=== PATIENT | male | born 1945 | race Caucasian/White ===

== ENCOUNTER 2017-12-20 21:37 | Emergency (ER) | payer OTHER, MEDICARE ==
[2017-12-20 22:37] LABS: BASO % 0.7 % (0.0-1.0); EOS # 0.1 10^3/uL (0.0-0.50); EOS % 2.6 % (0.0-3.0); HEMATOCRIT 35.8 % (42.0-52.0); HEMOGLOBIN 11.8 g/dl (14.0-18.0); IMMATURE GRANULOCYTE % 0.4 % (0-3.0); LYMPH # 0.7 10^3/uL (1.5-4.5); LYMPH % 15.4 % (24.0-44.0); MEAN CORPUSCULAR HEMOGLOBIN 28.6 pg (27.0-33.0); MEAN CORPUSCULAR VOLUME 86.9 fl (80.0-96.0); MONO # 0.6 10^3/uL (0.0-0.8); MONO % 12.7 % (0.0-5.0); NEUTROPHILS # 3.1 10^3/uL (1.8-7.7); NEUTROPHILS % 68.2 % (36.0-66.0); PLATELET COUNT, AUTOMATED 143 10^3/uL (150-450); RED BLOOD COUNT 4.12 10^6/uL (4.30-6.10); RED CELL DISTRIBUTION WIDTH 15.9 % (11.5-14.5); WHITE BLOOD COUNT 4.6 10^3/uL (4.0-10.0)
[2017-12-20 22:41] LABS: INR 0.98; PROTHROMBIN TIME 13.1 SECONDS (12.4-14.5)
[2017-12-20 22:42] LABS: PARTIAL THROMBOPLASTIN TIME 26.5 SECONDS (26.8-37.9)
[2017-12-20] MEDS: NITROGLYCERIN 0.4 MG SUBL TABLET SL (22:42)
[2017-12-20] MEDS: ASPIRIN 81 MG CHEW TABLET PO (22:42)
[2017-12-20 23:00] LABS: ALBUMIN 3.6 GM/DL (3.2-5.2); ALKALINE PHOSPHATASE 68 U/L (45-117); ALT/SGPT 41 U/L (12-78); ANION GAP 10 MEQ/L (8-16); AST/SGOT 30 U/L (7-37); BILIRUBIN,DIRECT < 0.1 MG/DL (0.0-0.2); BILIRUBIN,TOTAL 0.3 MG/DL (0.2-1.0); BLOOD UREA NITROGEN 14 MG/DL (7-18); CALCIUM LEVEL 8.6 MG/DL (8.8-10.2); CARBON DIOXIDE LEVEL 23 MEQ/L (21-32); CHLORIDE LEVEL 102 MEQ/L (98-107); CK-MB VALUE MASS 3.1 NG/ML (0.0-3.6); CPK CREATINE PHOSPHOKINASE 92 U/L (39-308); CREATININE FOR GFR 1.49 MG/DL (0.70-1.30); GLOMERULAR FILTRATION RATE 49.5 (>42); GLUCOSE, FASTING 168 MG/DL (70-100); LIPASE 167 U/L (73-393); MB/CK RELATIVE INDEX 3.36 (< OR =4); POTASSIUM SERUM 3.9 MEQ/L (3.5-5.1); SODIUM LEVEL 135 MEQ/L (136-145); TOTAL PROTEIN 7.2 GM/DL (6.4-8.2); TROPONIN I < 0.02 NG/ML (< 0.10)
[2017-12-20] MEDS ORDERED: ISOVUE-370 76% 100ML VIAL (Q9967) As Ordered (23:18)
[2017-12-21 04:07] LABS: CPK CREATINE PHOSPHOKINASE 90 U/L (39-308); MB/CK RELATIVE INDEX 3.33 (< OR =4); TROPONIN I < 0.02 NG/ML (< 0.10)
== END 2017-12-21 04:56 | disposition home or self-care (01) ==
LOC: M ED 21:37
DX: R07.89 Other chest pain (principal); R06.02 Shortness of breath; R05 Cough; J44.9 Chronic obstructive pulmonary disease, unspecified; E78.5 Hyperlipidemia, unspecified; M19.90 Unspecified osteoarthritis, unspecified site; Z95.5 Presence of coronary angioplasty implant and graft; Z79.899 Other long term (current) drug therapy; Z79.82 Long term (current) use of aspirin; Z88.0 Allergy status to penicillin; F17.210 Nicotine dependence, cigarettes, uncomplicated
CPT/HCPCS: Q9967

== ENCOUNTER → 2019-04-02 | Outpatient (CLI) | payer OTHER ==
[~2019-04-02] MED LIST: ASPI81TA26 PO; BUPR150T3 PO; CYCL10TA PO; FISH100049 PO; FLOM0.4C39 PO; OMEP20CA3 PO; PARO40TA3 PO; SIMV40TA2 PO; TYLE500T78 PO
--- NOTE | 2019-04-02 12:05 | REP ---
Duplex extremity venous ultrasound: Left lower extremity. History: Possible DVT. Left leg swelling. Findings: The deep veins are anechoic and fully compressible from the groin to the popliteal fossa in the left lower extremity. Color flow imaging is homogeneous. Spectral Doppler interrogation demonstrates intact respiratory variation in flow and normal manual augmentation of flow. There is no evidence of deep vein thrombosis. There is a Clement's cyst in the left popliteal fossa measuring 8.7 x 1.7 x 3.7 cm. Impression: 8.7 cm Clement's cyst, otherwise negative left lower extremity duplex venous ultrasound. No evidence of deep vein thrombosis. Electronically Signed by Chapin Bassett MD 04/02/2019 11:56 A
== END ==
LOC: M RAD 11:22
PROVIDERS: ATTEND Physician Assistant Medical
DX: M71.22 Synovial cyst of popliteal space [Baker], left knee (principal)

== ENCOUNTER → 2022-07-06 | Outpatient (CLI) | payer OTHER ==
[~2022-07-06] MED LIST changes: +BUPR150T12 PO; -BUPR150T3 PO; +CYCL-707 PO; -CYCL10TA PO; +OMEP1CAP73 PO; -OMEP20CA3 PO; -SIMV40TA2 PO; +SIMV40TA20 PO
== END ==
LOC: M RAD 10:35
PROVIDERS: ATTEND Physician Assistant Medical
DX: Z12.2 Encounter for screening for malignant neoplasm of respiratory organs (principal); Z87.891 Personal history of nicotine dependence; R91.8 Other nonspecific abnormal finding of lung field; I70.0 Atherosclerosis of aorta; I25.10 Atherosclerotic heart disease of native coronary artery without angina pectoris

== ENCOUNTER → 2023-07-11 | Outpatient (CLI) | payer MEDICARE, OTHER | LOC: M PLALAB 13:15 | PROVIDERS: ATTEND Nurse Practitioner Family | DX: R82.90 Unspecified abnormal findings in urine (principal); B95.61 Methicillin susceptible Staphylococcus aureus infection as the cause of diseases classified elsewhere ==

== ENCOUNTER → 2023-11-07 | Outpatient (CLI) | payer MEDICARE, OTHER | LOC: M PLALAB 09:10 | PROVIDERS: ATTEND Nurse Practitioner Family | DX: C61 Malignant neoplasm of prostate (principal) ==

== ENCOUNTER → 2023-11-24 | Outpatient (CLI) | payer MEDICARE, OTHER | LOC: M ONCR 13:10 | PROVIDERS: ATTEND General Practice | DX: C61 Malignant neoplasm of prostate (principal); C77.5 Secondary and unspecified malignant neoplasm of intrapelvic lymph nodes; F17.210 Nicotine dependence, cigarettes, uncomplicated; R35.1 Nocturia; Z71.2 Person consulting for explanation of examination or test findings; Z79.818 Long term (current) use of other agents affecting estrogen receptors and estrogen levels; Z79.82 Long term (current) use of aspirin; Z79.899 Other long term (current) drug therapy; Z88.0 Allergy status to penicillin; Z88.1 Allergy status to other antibiotic agents; Z92.3 Personal history of irradiation ==

== ENCOUNTER 2023-11-29 13:25 | Outpatient (RCR) | payer OTHER | END 2023-12-06 | LOC: M ONCR 13:25 | PROVIDERS: ATTEND General Practice | DX: Z51.0 Encounter for antineoplastic radiation therapy (principal); C61 Malignant neoplasm of prostate ==

== ENCOUNTER → 2023-12-26 | Outpatient (CLI) | payer OTHER | LOC: M RAD 09:17 | PROVIDERS: ATTEND Nurse Practitioner Family | DX: I71.40 Abdominal aortic aneurysm, without rupture, unspecified (principal); I72.3 Aneurysm of iliac artery; Z95.828 Presence of other vascular implants and grafts ==

== ENCOUNTER → 2024-01-04 | Outpatient (RCR) | payer OTHER | LOC: M ONCR 12-11 13:47 | PROVIDERS: ATTEND General Practice | DX: Z51.0 Encounter for antineoplastic radiation therapy (principal); C61 Malignant neoplasm of prostate ==

== ENCOUNTER 2024-01-19 13:42 | Outpatient (RCR) | payer OTHER ==
[~2024-01-19 13:42] MED LIST changes: +DEXA2TA PO
== END 2024-02-04 ==
LOC: M ONCR 13:42
PROVIDERS: ATTEND General Practice
DX: Z51.0 Encounter for antineoplastic radiation therapy (principal); C61 Malignant neoplasm of prostate

== ENCOUNTER → 2024-03-01 | Outpatient (REF) | payer OTHER | LOC: M LABDRAWP 14:59 | PROVIDERS: ATTEND Nurse Practitioner Family | DX: C61 Malignant neoplasm of prostate (principal) ==

== ENCOUNTER → 2024-04-16 | Outpatient (CLI) | payer OTHER | LOC: M PLALAB 14:28 | PROVIDERS: ATTEND General Practice | DX: C61 Malignant neoplasm of prostate (principal) ==

== ENCOUNTER → 2024-04-23 | Outpatient (CLI) | payer OTHER ==
[~2024-04-23] MED LIST changes: +MYRB50TA PO
== END ==
LOC: M ONCR 14:27
PROVIDERS: ATTEND General Practice
DX: C61 Malignant neoplasm of prostate (principal); R35.1 Nocturia; R35.0 Frequency of micturition; Z71.2 Person consulting for explanation of examination or test findings; F17.210 Nicotine dependence, cigarettes, uncomplicated; Z79.818 Long term (current) use of other agents affecting estrogen receptors and estrogen levels; Z92.3 Personal history of irradiation; Z88.0 Allergy status to penicillin; Z88.1 Allergy status to other antibiotic agents; Z79.82 Long term (current) use of aspirin; Z79.899 Other long term (current) drug therapy

== ENCOUNTER 2024-09-19 13:25 | Day surgery (SDC) | payer OTHER ==
[~2024-09-19] VITALS: Ht 188 cm; Wt 108.9 kg
[~2024-09-19 13:25] MED LIST changes: +ACET650T61 PO; +AMIL5TAB4 PO; +IRON65TA2 PO; +JARD1TAB3 PO; +LIDOCAINE 2% 100MG/5ML SDV (FOR ANES.) As Ordered ONE; +META0.52 PO; +NS 250 ML IV ONE; +OXYB-54 PO; +TERA10CA3 PO; +VENTAER INH; +VESI10TA2 PO; +fentaNYL 100 MCG/2 ML INJECTION As Ordered ONE; +propofoL 200 MG/20 ML VIAL As Ordered ONE
[2024-09-19 15:05] VITALS: BP 175/83; O2SAT 94
== END 2024-09-19 15:15 | disposition home or self-care (01) ==
LOC: M OPP 13:25
PROVIDERS: ATTEND Surgery
DX: D50.9 Iron deficiency anemia, unspecified (principal); K29.71 Gastritis, unspecified, with bleeding; D12.5 Benign neoplasm of sigmoid colon; D12.4 Benign neoplasm of descending colon; K21.9 Gastro-esophageal reflux disease without esophagitis; Z85.46 Personal history of malignant neoplasm of prostate; E11.9 Type 2 diabetes mellitus without complications; I10 Essential (primary) hypertension; J44.9 Chronic obstructive pulmonary disease, unspecified; R32 Unspecified urinary incontinence; E78.00 Pure hypercholesterolemia, unspecified; I25.2 Old myocardial infarction; Z95.5 Presence of coronary angioplasty implant and graft; F17.210 Nicotine dependence, cigarettes, uncomplicated; Z79.899 Other long term (current) drug therapy; Z79.82 Long term (current) use of aspirin; Z88.0 Allergy status to penicillin; Z88.1 Allergy status to other antibiotic agents; G47.30 Sleep apnea, unspecified; Z92.3 Personal history of irradiation
CPT/HCPCS: 43239; 45385; 88305; J3010

== ENCOUNTER 2024-10-18 11:19 | Inpatient (IN) | payer OTHER ==
[~2024-10-18 11:19] MED LIST changes: -LIDOCAINE 2% 100MG/5ML SDV (FOR ANES.) As Ordered ONE; -NS 250 ML IV ONE; -fentaNYL 100 MCG/2 ML INJECTION As Ordered ONE; -propofoL 200 MG/20 ML VIAL As Ordered ONE
[2024-10-18 12:02] LABS: VENOUS O2 SATURATION 82.7 % (60.0-80.0); VENOUS PARTIAL PRESSURE CO2 33.2 mmHg (38.0-50.0); VENOUS PARTIAL PRESSURE O2 47.2 mmHg (30.0-50.0); VENOUS PH 7.398 UNITS (7.330-7.430); VENOUS STANDARD HCO3 20.9 MMOL/L
[2024-10-18 12:07] LABS: BASO % 0.1 % (0.0-1.0); EOS # 0.1 10^3/uL (0.0-0.5); EOS % 0.4 % (0.0-3.0); HEMATOCRIT 36.1 % (42.0-52.0); HEMOGLOBIN 11.3 g/dl (13.5-17.5); LYMPH # 0.8 10^3/uL (1.5-5.0); LYMPH % 5.3 % (24.0-44.0); MEAN CORPUSCULAR HEMOGLOBIN 24.6 pg (27.0-33.0); MEAN CORPUSCULAR HGB CONC 31.3 g/dl (32.0-36.5); MEAN CORPUSCULAR VOLUME 78.6 fl (80.0-96.0); MONO # 1.2 10^3/uL (0.0-0.8); MONO % 7.7 % (2.0-8.0); NEUTROPHILS # 13.4 10^3/uL (1.5-8.5); NEUTROPHILS % 85.4 % (36.0-66.0); PLATELET COUNT, AUTOMATED 332 10^3/uL (150-450); RED BLOOD COUNT 4.59 10^6/uL (4.30-6.10); WHITE BLOOD COUNT 15.7 10^3/uL (4.0-10.0)
[2024-10-18 12:19] LABS: INR 1.31; PARTIAL THROMBOPLASTIN TIME 36.6 SECONDS (24.8-34.2); PROTHROMBIN TIME 16.6 SECONDS (12.5-14.5)
[2024-10-18 12:36] LABS: AMYLASE 53 U/L (30-118)
[2024-10-18 12:37] LABS: ALBUMIN 2.7 G/DL (3.2-5.2); ALKALINE PHOSPHATASE 170 U/L (40-129); ALT/SGPT 44 U/L (7.0-40); AST/SGOT 48 U/L (<34); BILIRUBIN,DIRECT 0.4 MG/DL (<0.4); BILIRUBIN,TOTAL 0.7 MG/DL (0.3-1.2); BLOOD UREA NITROGEN 18 MG/DL (9-23); CALCIUM LEVEL 10.4 MG/DL (8.3-10.6); CARBON DIOXIDE LEVEL 20 MMOL/L (20-31); CHLORIDE LEVEL 101 MMOL/L (98-107); CREATININE FOR GFR 1.07 MG/DL (0.70-1.30); GLOMERULAR FILTRATION RATE > 60.0 (>42); GLUCOSE, FASTING 117 MG/DL (74-106); POTASSIUM SERUM 4.3 MMOL/L (3.5-5.1); SODIUM LEVEL 132 MMOL/L (136-145); TOTAL PROTEIN 6.8 G/DL (5.7-8.2)
[2024-10-18 12:43] LABS: PROCALCITONIN 0.37 ng/ml
[2024-10-18 12:50] LABS: C REACTIVE PROTEIN QUANTITATIV 25.22 MG/DL (<1.0)
[2024-10-18] MEDS ORDERED: ISOVUE-370 76% 100ML VIAL As Ordered ONE (12:55)
[2024-10-18 14:43] LABS: APPEARANCE, URINE CLEAR (CLEAR); BACTERIA, URINE AUTO NEGATIVE (NEGATIVE); BILIRUBIN, URINE AUTO NEGATIVE (NEGATIVE); BLOOD, URINE BLOOD 1+ (NEGATIVE); COLOR, URINE YELLOW (YELLOW); GLUCOSE, URINE (UA) AUTO 3+ mg/dL (NEGATIVE); KETONE, URINE AUTO NEGATIVE (NEGATIVE); LEUKOCYTE ESTERASE, URINE AUTO 1+ (NEGATIVE); MUCUS, URINE SMALL (NEGATIVE); NITRITE, URINE AUTO POSITIVE (NEGATIVE); PROTEIN, URINE AUTO 1+ mg/dL (NEGATIVE); RBC, URINE AUTO 5 /HPF (0-3); SPECIFIC GRAVITY URINE AUTO 1.023 (1.002-1.035); SQUAMOUS EPITHELIAL CELL UR AU 0 /HPF (0-6); WBC, URINE AUTO 25 /HPF (0-3)
[2024-10-18] MEDS: CIPROFLOXACIN 400 MG in IV 1 EA IV ONE (15:02)
[2024-10-18] MEDS: metroNIDAZOLE 500 MG in IV 1 EA IV ONE (16:01)
[2024-10-18] MEDS ORDERED: NS (Normal Saline) 0.9% 1,000 ML IV SCH (16:20)
[2024-10-18] MEDS ORDERED: MAALOX 30 ML SUSP *UDC PO PRN (16:20)
[2024-10-18] MEDS ORDERED: MOM 30ML SUSPENSION UDC PO PRN (16:20)
[2024-10-18] MEDS ORDERED: ACETAMINOPHEN 325 MG TAB PO PRN (16:20)
[2024-10-18] MEDS: NS (Normal Saline) 0.9% 1,000 ML IV ONE (16:29)
[2024-10-18] MEDS ORDERED: GLUCAGON INJ 1MG VIAL SC PRN (16:55)
[2024-10-18] MEDS ORDERED: DEXTROSE 50% 50ML SYRINGE IV PRN (16:55)
[2024-10-18] MEDS ORDERED: GLUCOSE 4 GM CHEW PO PRN (16:55)
[2024-10-18] MEDS: INSULIN LISPRO (NovoLOG) PER UNIT SC SCH ×2 (17:30→20:36)
[2024-10-18 18:20] LABS: HEPATITIS B SURFACE ANTIGEN NEGATIVE (NEGATIVE)
[2024-10-18 18:39] VITALS: BP 148/66; TEMP 99.2; O2SAT 93
[2024-10-18 18:41] LABS: HEPATITIS C VIRUS ABY INDEX < 0.02 INDEX (<0.8)
[2024-10-18 18:42] LABS: HEPATITIS B CORE ANTIBODY IGM NEGATIVE (NEGATIVE)
[2024-10-18] MEDS ORDERED: FLOM0.4C39 PO (19:09)
[2024-10-18] MEDS ORDERED: BUSP15TA47 PO (19:09)
[2024-10-18] MEDS ORDERED: ERGO500029 PO (19:09)
[2024-10-18] MEDS ORDERED: SYNJ1TAB3 PO (19:09)
[2024-10-18] MEDS ORDERED: THERTAB52 PO (19:09)
[2024-10-18] MEDS ORDERED: BUPR1TAB52 PO (19:09)
[2024-10-18] MEDS ORDERED: FENO145T7 PO (19:09)
[2024-10-18] MEDS ORDERED: XALA0.007 OU (19:09)
[2024-10-18] MEDS ORDERED: ATOR80TA59 PO (19:09)
[2024-10-18] MEDS ORDERED: MYRB50TA PO (19:09)
[2024-10-18] MEDS ORDERED: CETI-24 PO (19:09)
[2024-10-18] MEDS ORDERED: ACET-683 PO (19:09)
[2024-10-18] MEDS ORDERED: CARV12.5 PO (19:09)
[2024-10-18] MEDS ORDERED: HOME MED LIST COMPLETE! XX SCH (19:10)
[2024-10-18 19:38] VITALS: BP 144/63; TEMP 97.7; O2SAT 94
[2024-10-18] MEDS: NS (Normal Saline) 0.9% 1,000 ML IV SCH (19:42)
[2024-10-18] MEDS ORDERED: ALBUTEROL 90 MCG/ACT 8GM HFA INHALER INH PRN (20:40)
[2024-10-18] MEDS ORDERED: oxyBUTYnin 5 MG TAB PO SCH (21:00)
[2024-10-18] MEDS: TAMSULOSIN 0.4 MG CAP PO SCH (21:38)
[2024-10-18] MEDS: CARVedilol 6.25 MG TAB PO SCH (21:38)
[2024-10-18] MEDS: busPIRone 5 MG TAB PO SCH (21:38)
[2024-10-18] MEDS: METAMUCIL (PSYLLIUM) PACKET PO SCH (21:38)
[2024-10-18] MEDS: buPROPion (WELLBUTRIN SR) 100 MG SR TAB PO SCH (21:38)
[2024-10-18] MEDS: DOCUSATE SODIUM 100MG CAPSULE PO SCH (21:39)
[2024-10-18] MEDS: cefTRIAXone SOD 2 GM in DEXTROSE 5% (D5W) ADV/MINI-BAG 50 ML IV SCH (21:39)
[2024-10-18] MEDS: SOLIFENACIN 5 MG TAB PO SCH (22:20)
[2024-10-18] MEDS: LATANOPROST 0.005% OPHTH SOLN 2.5 ML OU SCH (22:20)
[2024-10-18 23:30] VITALS: BP 150/68; TEMP 97.9; O2SAT 93
[2024-10-19] VITALS (18 sets, daily range): BP systolic 130–144; BP diastolic 62–90; TEMP 97.2–97.5; O2SAT 88–92
[2024-10-19] MEDS: metroNIDAZOLE 500 MG in IV 1 EA IV SCH (00:09)
[2024-10-19] MEDS: NYSTATIN CREAM 15GM EXT SCH (03:35)
[2024-10-19] MEDS: HEPARIN SOD (PORCINE) 5000UNITS/ML 1ML VIAL/SYRINGE SC SCH (05:53)
[2024-10-19 06:34] LABS: BASO % 0.2 % (0.0-1.0); EOS # 0.1 10^3/uL (0.0-0.5); EOS % 0.7 % (0.0-3.0); HEMATOCRIT 32.2 % (42.0-52.0); HEMOGLOBIN 10.1 g/dl (13.5-17.5); LYMPH # 0.7 10^3/uL (1.5-5.0); LYMPH % 5.4 % (24.0-44.0); MEAN CORPUSCULAR HEMOGLOBIN 24.5 pg (27.0-33.0); MEAN CORPUSCULAR HGB CONC 31.4 g/dl (32.0-36.5); MEAN CORPUSCULAR VOLUME 78.2 fl (80.0-96.0); MONO # 0.9 10^3/uL (0.0-0.8); NEUTROPHILS # 10.7 10^3/uL (1.5-8.5); NEUTROPHILS % 85.5 % (36.0-66.0); PLATELET COUNT, AUTOMATED 265 10^3/uL (150-450); RED BLOOD COUNT 4.12 10^6/uL (4.30-6.10); WHITE BLOOD COUNT 12.5 10^3/uL (4.0-10.0)
[2024-10-19 07:01] LABS: BLOOD UREA NITROGEN 14 MG/DL (9-23); CALCIUM LEVEL 9.6 MG/DL (8.3-10.6); CARBON DIOXIDE LEVEL 19 MMOL/L (20-31); CHLORIDE LEVEL 101 MMOL/L (98-107); CREATININE FOR GFR 0.87 MG/DL (0.70-1.30); GLOMERULAR FILTRATION RATE > 60.0 (>42); GLUCOSE, FASTING 97 MG/DL (74-106); MAGNESIUM LEVEL 1.6 MG/DL (1.8-2.4); POTASSIUM SERUM 3.8 MMOL/L (3.5-5.1); SODIUM LEVEL 131 MMOL/L (136-145)
[2024-10-19] MEDS: ASPIRIN 81MG ENTERIC TABLET PO SCH (08:23)
[2024-10-19] MEDS: ATORVASTATIN 20 MG TAB PO SCH (08:24)
[2024-10-19] MEDS: MULTIVITAMINS/MINERALS THERAP 1 TAB PO SCH (08:24)
[2024-10-19] MEDS: CETIRIZINE (ZyrTEC) 10 MG TAB PO SCH (08:24)
[2024-10-19] MEDS: PARoxetine 20MG TABLET PO SCH (08:24)
[2024-10-19] MEDS: FERROUS SULFATE 325MG TAB PO SCH (08:24)
[2024-10-19] MEDS: OMEPRAZOLE 20MG CAP PO SCH (08:24)
[2024-10-19] MEDS: FENOFIBRATE 145MG TABLET (TRICOR) PO SCH (08:24)
[2024-10-19] MEDS: MAGNESIUM OXIDE 400MG TAB (MAG-OX) PO SCH (08:25)
[2024-10-20] VITALS (25 sets, daily range): BP systolic 130–148; BP diastolic 58–69; TEMP 97–97.7; O2SAT 91–95
[2024-10-20 06:09] LABS: BASO % 0.2 % (0.0-1.0); EOS # 0.1 10^3/uL (0.0-0.5); EOS % 1.3 % (0.0-3.0); HEMATOCRIT 33.3 % (42.0-52.0); HEMOGLOBIN 10.3 g/dl (13.5-17.5); LYMPH # 0.6 10^3/uL (1.5-5.0); LYMPH % 5.5 % (24.0-44.0); MEAN CORPUSCULAR HEMOGLOBIN 24.1 pg (27.0-33.0); MEAN CORPUSCULAR HGB CONC 30.9 g/dl (32.0-36.5); MEAN CORPUSCULAR VOLUME 77.8 fl (80.0-96.0); MONO # 0.8 10^3/uL (0.0-0.8); MONO % 6.8 % (2.0-8.0); NEUTROPHILS # 9.3 10^3/uL (1.5-8.5); NEUTROPHILS % 84.6 % (36.0-66.0); PLATELET COUNT, AUTOMATED 272 10^3/uL (150-450); RED BLOOD COUNT 4.28 10^6/uL (4.30-6.10)
[2024-10-20 06:35] LABS: BLOOD UREA NITROGEN 14 MG/DL (9-23); CALCIUM LEVEL 9.7 MG/DL (8.3-10.6); CARBON DIOXIDE LEVEL 21 MMOL/L (20-31); CHLORIDE LEVEL 100 MMOL/L (98-107); CREATININE FOR GFR 0.84 MG/DL (0.70-1.30); GLOMERULAR FILTRATION RATE > 60.0 (>42); GLUCOSE, FASTING 91 MG/DL (74-106); MAGNESIUM LEVEL 1.8 MG/DL (1.8-2.4); POTASSIUM SERUM 3.7 MMOL/L (3.5-5.1); SODIUM LEVEL 131 MMOL/L (136-145)
[2024-10-20] MEDS: MAG SULF 1GM/100ML (MAG RUN) 1 GM in IV 1 EA IV ONE (07:50)
[2024-10-20] MEDS: VITAMIN D 50,000 UNITS CAPSULE (ERGOCALCIFEROL 1.25MG) PO SCH (09:11)
[2024-10-20 09:36] LABS: ALBUMIN 2.3 G/DL (3.2-5.2); ALKALINE PHOSPHATASE 192 U/L (40-129); ALT/SGPT 32 U/L (7.0-40); AST/SGOT 34 U/L (<34); BILIRUBIN,DIRECT 0.2 MG/DL (<0.4); BILIRUBIN,TOTAL 0.4 MG/DL (0.3-1.2); TOTAL PROTEIN 6.3 G/DL (5.7-8.2)
[2024-10-20] MEDS: aMILoride 5 MG TAB PO SCH (09:44)
[2024-10-20 12:56] LABS: HEMATOCRIT 32.7 % (42.0-52.0); HEMOGLOBIN 10.3 g/dl (13.5-17.5)
[2024-10-20] MEDS: metroNIDAZOLE (FLAGYL) 500MG TABLET PO SCH (16:08)
[2024-10-20 19:04] LABS: HEMATOCRIT 33.6 % (42.0-52.0); HEMOGLOBIN 10.6 g/dl (13.5-17.5)
[2024-10-20] MEDS: CEFDINIR 300 MG CAP (OMNICEF) PO SCH (20:31)
[2024-10-21] VITALS (17 sets, daily range): BP systolic 119–140; BP diastolic 55–67; TEMP 96.6–98; O2SAT 90–99
[2024-10-21 00:54] LABS: HEMATOCRIT 32.4 % (42.0-52.0); HEMOGLOBIN 10.2 g/dl (13.5-17.5)
[2024-10-21 06:30] LABS: BASO % 0.2 % (0.0-1.0); EOS # 0.2 10^3/uL (0.0-0.5); EOS % 1.8 % (0.0-3.0); HEMATOCRIT 33.1 % (42.0-52.0); HEMOGLOBIN 10.5 g/dl (13.5-17.5); LYMPH # 0.6 10^3/uL (1.5-5.0); MEAN CORPUSCULAR HEMOGLOBIN 24.6 pg (27.0-33.0); MEAN CORPUSCULAR HGB CONC 31.7 g/dl (32.0-36.5); MEAN CORPUSCULAR VOLUME 77.7 fl (80.0-96.0); MONO # 0.8 10^3/uL (0.0-0.8); MONO % 7.7 % (2.0-8.0); NEUTROPHILS # 8.7 10^3/uL (1.5-8.5); NEUTROPHILS % 82.4 % (36.0-66.0); PLATELET COUNT, AUTOMATED 299 10^3/uL (150-450); RED BLOOD COUNT 4.26 10^6/uL (4.30-6.10); WHITE BLOOD COUNT 10.5 10^3/uL (4.0-10.0)
[2024-10-21 07:25] LABS: BLOOD UREA NITROGEN 21 MG/DL (9-23); CALCIUM LEVEL 9.7 MG/DL (8.3-10.6); CARBON DIOXIDE LEVEL 23 MMOL/L (20-31); CHLORIDE LEVEL 99 MMOL/L (98-107); CREATININE FOR GFR 0.93 MG/DL (0.70-1.30); GLOMERULAR FILTRATION RATE > 60.0 (>42); GLUCOSE, FASTING 103 MG/DL (74-106); MAGNESIUM LEVEL 2.1 MG/DL (1.8-2.4); POTASSIUM SERUM 4.6 MMOL/L (3.5-5.1); SODIUM LEVEL 130 MMOL/L (136-145)
[2024-10-21] MEDS: LIDOCAINE 5% (LIDODERM) PATCH TD SCH (15:23)
[2024-10-22 03:50] VITALS: BP 146/70; TEMP 97.2; O2SAT 93
[2024-10-22 07:18] LABS: BASO % 0.2 % (0.0-1.0); EOS # 0.2 10^3/uL (0.0-0.5); EOS % 1.9 % (0.0-3.0); HEMATOCRIT 36.5 % (42.0-52.0); HEMOGLOBIN 11.2 g/dl (13.5-17.5); LYMPH # 0.6 10^3/uL (1.5-5.0); LYMPH % 6.8 % (24.0-44.0); MEAN CORPUSCULAR HEMOGLOBIN 23.9 pg (27.0-33.0); MEAN CORPUSCULAR HGB CONC 30.7 g/dl (32.0-36.5); MONO # 0.7 10^3/uL (0.0-0.8); MONO % 8.4 % (2.0-8.0); NEUTROPHILS # 6.7 10^3/uL (1.5-8.5); NEUTROPHILS % 78.7 % (36.0-66.0); PLATELET COUNT, AUTOMATED 344 10^3/uL (150-450); RED BLOOD COUNT 4.68 10^6/uL (4.30-6.10); WHITE BLOOD COUNT 8.6 10^3/uL (4.0-10.0)
[2024-10-22 07:27] VITALS: BP 138/66; TEMP 98.2; O2SAT 96
[2024-10-22 07:45] LABS: BLOOD UREA NITROGEN 21 MG/DL (9-23); CALCIUM LEVEL 9.8 MG/DL (8.3-10.6); CARBON DIOXIDE LEVEL 22 MMOL/L (20-31); CHLORIDE LEVEL 102 MMOL/L (98-107); CREATININE FOR GFR 0.84 MG/DL (0.70-1.30); GLOMERULAR FILTRATION RATE > 60.0 (>42); GLUCOSE, FASTING 113 MG/DL (74-106); MAGNESIUM LEVEL 2.1 MG/DL (1.8-2.4); POTASSIUM SERUM 4.2 MMOL/L (3.5-5.1); SODIUM LEVEL 133 MMOL/L (136-145)
[2024-10-22 20:08] VITALS: BP 143/67; TEMP 98.6; O2SAT 93
[2024-10-23 03:00] VITALS: BP 142/63; TEMP 97.3; O2SAT 92
[2024-10-23 06:34] LABS: BASO # 0.1 10^3/uL (0.0-0.2); BASO % 0.5 % (0.0-1.0); EOS # 0.2 10^3/uL (0.0-0.5); EOS % 1.8 % (0.0-3.0); HEMOGLOBIN 11.3 g/dl (13.5-17.5); LYMPH % 9.6 % (24.0-44.0); MEAN CORPUSCULAR HEMOGLOBIN 24.2 pg (27.0-33.0); MEAN CORPUSCULAR HGB CONC 31.4 g/dl (32.0-36.5); MEAN CORPUSCULAR VOLUME 77.1 fl (80.0-96.0); MONO # 0.9 10^3/uL (0.0-0.8); MONO % 8.4 % (2.0-8.0); NEUTROPHILS # 7.6 10^3/uL (1.5-8.5); NEUTROPHILS % 74.9 % (36.0-66.0); PLATELET COUNT, AUTOMATED 392 10^3/uL (150-450); RED BLOOD COUNT 4.67 10^6/uL (4.30-6.10); WHITE BLOOD COUNT 10.1 10^3/uL (4.0-10.0)
[2024-10-23 06:51] LABS: BLOOD UREA NITROGEN 25 MG/DL (9-23); CALCIUM LEVEL 9.9 MG/DL (8.3-10.6); CARBON DIOXIDE LEVEL 24 MMOL/L (20-31); CHLORIDE LEVEL 100 MMOL/L (98-107); CREATININE FOR GFR 0.97 MG/DL (0.70-1.30); GLOMERULAR FILTRATION RATE > 60.0 (>42); GLUCOSE, FASTING 100 MG/DL (74-106); MAGNESIUM LEVEL 1.9 MG/DL (1.8-2.4); POTASSIUM SERUM 4.7 MMOL/L (3.5-5.1); SODIUM LEVEL 132 MMOL/L (136-145)
[2024-10-23 08:16] VITALS: BP 108/55
[2024-10-23] MEDS ORDERED: METR-265 PO (12:02)
[2024-10-23] MEDS ORDERED: CEFD1CAP9 PO (12:02)
== END 2024-10-23 13:33 | DRG 155 ==
LOC: M ED 11:19 → EDBD 11:19 → M ED INP 16:17 → M PCU 18:37
PROVIDERS: ADMIT Internal Medicine; ATTEND Internal Medicine
DX: K11.20 Sialoadenitis, unspecified (principal); J98.11 Atelectasis; E87.1 Hypo-osmolality and hyponatremia; N39.0 Urinary tract infection, site not specified; I10 Essential (primary) hypertension; E11.9 Type 2 diabetes mellitus without complications; C61 Malignant neoplasm of prostate; I25.10 Atherosclerotic heart disease of native coronary artery without angina pectoris; K21.9 Gastro-esophageal reflux disease without esophagitis; N40.0 Benign prostatic hyperplasia without lower urinary tract symptoms; E55.9 Vitamin D deficiency, unspecified; Z92.3 Personal history of irradiation; F41.9 Anxiety disorder, unspecified; F32.A Depression, unspecified; Z88.0 Allergy status to penicillin; Z79.82 Long term (current) use of aspirin; Z79.899 Other long term (current) drug therapy; D72.829 Elevated white blood cell count, unspecified; I25.2 Old myocardial infarction; G89.29 Other chronic pain

== ENCOUNTER → 2024-10-24 | Outpatient (REF) | payer OTHER ==
[~2024-10-24] MED LIST changes: +ACET-683 PO; +ATOR80TA59 PO; +BUPR1TAB52 PO; +BUSP15TA47 PO; +CARV12.5 PO; +CEFD1CAP9 PO; +CETI-24 PO; +ERGO500029 PO; +FENO145T7 PO; +METR-265 PO; +SYNJ1TAB3 PO; +THERTAB52 PO; +XALA0.007 OU
[2024-10-24 09:43] LABS: HEMATOCRIT 38.2 % (42.0-52.0); HEMOGLOBIN 11.9 g/dl (13.5-17.5); MEAN CORPUSCULAR HEMOGLOBIN 24.3 pg (27.0-33.0); MEAN CORPUSCULAR HGB CONC 31.2 g/dl (32.0-36.5); MEAN CORPUSCULAR VOLUME 78.1 fl (80.0-96.0); PLATELET COUNT, AUTOMATED 434 10^3/uL (150-450); RED BLOOD COUNT 4.89 10^6/uL (4.30-6.10); WHITE BLOOD COUNT 12.6 10^3/uL (4.0-10.0)
[2024-10-24 09:49] LABS: HEMOGLOBIN A1c 5.5 % (4.0-6.0)
[2024-10-24 09:51] LABS: BLOOD UREA NITROGEN 24 MG/DL (9-23); CALCIUM LEVEL 10.1 MG/DL (8.3-10.6); CARBON DIOXIDE LEVEL 25 MMOL/L (20-31); CHLORIDE LEVEL 102 MMOL/L (98-107); CREATININE FOR GFR 1.01 MG/DL (0.70-1.30); GLOMERULAR FILTRATION RATE > 60.0 (>42); GLUCOSE, FASTING 113 MG/DL (74-106); POTASSIUM SERUM 4.8 MMOL/L (3.5-5.1); SODIUM LEVEL 136 MMOL/L (136-145)
[2024-10-24 10:34] LABS: ANISOCYTOSIS 2+; BASOPHILS 1 % (0-1); EOSINOPHILS 1 % (0-3); HYPOCHROMASIA 1+; LYMPHOCYTES 12 % (16-44); METAMYELOCYTES 2 % (0-0); MONOCYTES 12 % (0-5); MYELOCYTES 1 % (0-0); NEUTROPHILS 71 % (28-66)
[2024-10-24 10:35] LABS: MICROCYTOSIS 1+; PLATELET ESTIMATE NORMAL (NORMAL)
== END ==
LOC: SKLAB2 07:03
PROVIDERS: ATTEND Internal Medicine
DX: E11.9 Type 2 diabetes mellitus without complications (principal); K11.20 Sialoadenitis, unspecified

== ENCOUNTER → 2024-10-25 | Outpatient (REF) | payer OTHER ==
[2024-10-25 06:56] LABS: BASO # 0.1 10^3/uL (0.0-0.2); BASO % 0.6 % (0.0-1.0); EOS # 0.2 10^3/uL (0.0-0.5); HEMATOCRIT 39.3 % (42.0-52.0); LYMPH # 0.7 10^3/uL (1.5-5.0); LYMPH % 6.2 % (24.0-44.0); MEAN CORPUSCULAR HEMOGLOBIN 23.9 pg (27.0-33.0); MEAN CORPUSCULAR HGB CONC 30.5 g/dl (32.0-36.5); MEAN CORPUSCULAR VOLUME 78.3 fl (80.0-96.0); MONO # 0.8 10^3/uL (0.0-0.8); MONO % 7.2 % (2.0-8.0); NEUTROPHILS # 8.6 10^3/uL (1.5-8.5); NEUTROPHILS % 77.2 % (36.0-66.0); PLATELET COUNT, AUTOMATED 440 10^3/uL (150-450); RED BLOOD COUNT 5.02 10^6/uL (4.30-6.10); WHITE BLOOD COUNT 11.2 10^3/uL (4.0-10.0)
[2024-10-25 07:10] LABS: ALBUMIN 2.7 G/DL (3.2-5.2); ALKALINE PHOSPHATASE 128 U/L (40-129); ALT/SGPT 21 U/L (7.0-40); AST/SGOT 25 U/L (<34); BILIRUBIN,TOTAL 0.4 MG/DL (0.3-1.2); BLOOD UREA NITROGEN 23 MG/DL (9-23); CALCIUM LEVEL 10.4 MG/DL (8.3-10.6); CARBON DIOXIDE LEVEL 25 MMOL/L (20-31); CHLORIDE LEVEL 101 MMOL/L (98-107); CREATININE FOR GFR 1.04 MG/DL (0.70-1.30); GLOMERULAR FILTRATION RATE > 60.0 (>42); GLUCOSE, FASTING 133 MG/DL (74-106); POTASSIUM SERUM 4.8 MMOL/L (3.5-5.1); SODIUM LEVEL 135 MMOL/L (136-145); TOTAL PROTEIN 6.9 G/DL (5.7-8.2)
== END ==
LOC: SKLAB2 07:00
PROVIDERS: ATTEND Internal Medicine
DX: K11.20 Sialoadenitis, unspecified (principal)

== ENCOUNTER → 2024-10-28 | Outpatient (REF) | payer OTHER | LOC: SKLAB2 16:06 | PROVIDERS: ATTEND Internal Medicine | DX: R09.89 Other specified symptoms and signs involving the circulatory and respiratory systems (principal) ==

== ENCOUNTER → 2024-10-28 | Outpatient (REF) | payer OTHER ==
[2024-10-28 09:54] LABS: BASO % 0.1 % (0.0-1.0); EOS # 0.1 10^3/uL (0.0-0.5); EOS % 0.9 % (0.0-3.0); HEMATOCRIT 39.9 % (42.0-52.0); HEMOGLOBIN 12.1 g/dl (13.5-17.5); LYMPH # 0.7 10^3/uL (1.5-5.0); MEAN CORPUSCULAR HEMOGLOBIN 24.2 pg (27.0-33.0); MEAN CORPUSCULAR HGB CONC 30.3 g/dl (32.0-36.5); MONO # 0.5 10^3/uL (0.0-0.8); MONO % 6.5 % (2.0-8.0); NEUTROPHILS # 6.3 10^3/uL (1.5-8.5); NEUTROPHILS % 82.1 % (36.0-66.0); PLATELET COUNT, AUTOMATED 369 10^3/uL (150-450); RED BLOOD COUNT 4.99 10^6/uL (4.30-6.10); WHITE BLOOD COUNT 7.7 10^3/uL (4.0-10.0)
[2024-10-28 10:12] LABS: BLOOD UREA NITROGEN 21 MG/DL (9-23); CALCIUM LEVEL 9.7 MG/DL (8.3-10.6); CARBON DIOXIDE LEVEL 24 MMOL/L (20-31); CHLORIDE LEVEL 102 MMOL/L (98-107); CREATININE FOR GFR 0.96 MG/DL (0.70-1.30); GLOMERULAR FILTRATION RATE > 60.0 (>42); GLUCOSE, FASTING 132 MG/DL (74-106); POTASSIUM SERUM 4.3 MMOL/L (3.5-5.1); SODIUM LEVEL 133 MMOL/L (136-145)
== END ==
LOC: SKLAB2 07:00
PROVIDERS: ATTEND Internal Medicine
DX: K11.20 Sialoadenitis, unspecified (principal)

== ENCOUNTER → 2024-10-31 | Outpatient (REF) | payer OTHER ==
[2024-10-31 13:08] LABS: BASO % 0.1 % (0.0-1.0); EOS # 0.1 10^3/uL (0.0-0.5); EOS % 1.1 % (0.0-3.0); HEMATOCRIT 37.3 % (42.0-52.0); HEMOGLOBIN 11.5 g/dl (13.5-17.5); LYMPH # 0.8 10^3/uL (1.5-5.0); LYMPH % 9.4 % (24.0-44.0); MEAN CORPUSCULAR HEMOGLOBIN 24.5 pg (27.0-33.0); MEAN CORPUSCULAR HGB CONC 30.8 g/dl (32.0-36.5); MEAN CORPUSCULAR VOLUME 79.4 fl (80.0-96.0); MONO # 0.7 10^3/uL (0.0-0.8); MONO % 8.4 % (2.0-8.0); NEUTROPHILS # 6.5 10^3/uL (1.5-8.5); PLATELET COUNT, AUTOMATED 325 10^3/uL (150-450); WHITE BLOOD COUNT 8.1 10^3/uL (4.0-10.0)
[2024-10-31 13:33] LABS: ALBUMIN 2.7 G/DL (3.2-5.2); ALKALINE PHOSPHATASE 80 U/L (40-129); ALT/SGPT 15 U/L (7.0-40); AST/SGOT 26 U/L (<34); BILIRUBIN,TOTAL 0.4 MG/DL (0.3-1.2); BLOOD UREA NITROGEN 25 MG/DL (9-23); CALCIUM LEVEL 9.7 MG/DL (8.3-10.6); CARBON DIOXIDE LEVEL 24 MMOL/L (20-31); CHLORIDE LEVEL 103 MMOL/L (98-107); CREATININE FOR GFR 1.15 MG/DL (0.70-1.30); GLOMERULAR FILTRATION RATE > 60.0 (>42); GLUCOSE, FASTING 96 MG/DL (74-106); POTASSIUM SERUM 5.3 MMOL/L (3.5-5.1); SODIUM LEVEL 135 MMOL/L (136-145); TOTAL PROTEIN 6.4 G/DL (5.7-8.2)
== END ==
LOC: SKLAB2 12:16
PROVIDERS: ATTEND Nurse Practitioner Family
DX: U07.1 COVID-19 (principal)

== ENCOUNTER → 2024-11-04 | Outpatient (REF) | payer SELFPAY | LOC: SKLAB2 10:07 | PROVIDERS: ATTEND Internal Medicine | DX: Z53.9 Procedure and treatment not carried out, unspecified reason (principal) ==

== ENCOUNTER → 2024-11-04 | Outpatient (REF) | payer OTHER ==
[2024-11-04 11:55] LABS: BASO % 0.1 % (0.0-1.0); EOS % 0.4 % (0.0-3.0); HEMATOCRIT 37.6 % (42.0-52.0); HEMOGLOBIN 11.8 g/dl (13.5-17.5); LYMPH # 0.6 10^3/uL (1.5-5.0); LYMPH % 5.1 % (24.0-44.0); MEAN CORPUSCULAR HEMOGLOBIN 24.9 pg (27.0-33.0); MEAN CORPUSCULAR HGB CONC 31.4 g/dl (32.0-36.5); MEAN CORPUSCULAR VOLUME 79.5 fl (80.0-96.0); MONO % 8.6 % (2.0-8.0); NEUTROPHILS # 9.6 10^3/uL (1.5-8.5); NEUTROPHILS % 85.4 % (36.0-66.0); PLATELET COUNT, AUTOMATED 293 10^3/uL (150-450); RED BLOOD COUNT 4.73 10^6/uL (4.30-6.10); WHITE BLOOD COUNT 11.3 10^3/uL (4.0-10.0)
[2024-11-04 12:20] LABS: ALBUMIN 2.8 G/DL (3.2-5.2); ALKALINE PHOSPHATASE 78 U/L (40-129); ALT/SGPT 12 U/L (7.0-40); AST/SGOT 18 U/L (<34); BILIRUBIN,TOTAL 0.7 MG/DL (0.3-1.2); BLOOD UREA NITROGEN 27 MG/DL (9-23); CARBON DIOXIDE LEVEL 24 MMOL/L (20-31); CHLORIDE LEVEL 103 MMOL/L (98-107); CREATININE FOR GFR 1.03 MG/DL (0.70-1.30); GLOMERULAR FILTRATION RATE > 60.0 (>42); GLUCOSE, FASTING 101 MG/DL (74-106); POTASSIUM SERUM 4.6 MMOL/L (3.5-5.1); SODIUM LEVEL 136 MMOL/L (136-145); TOTAL PROTEIN 6.6 G/DL (5.7-8.2)
== END ==
LOC: SKLAB2 07:00
PROVIDERS: ATTEND Internal Medicine
DX: K11.20 Sialoadenitis, unspecified (principal)

== ENCOUNTER → 2025-03-24 | Outpatient (CLI) | payer OTHER ==
[~2025-03-24] MED LIST changes: +BUPR-670 PO; -BUPR1TAB52 PO; -FLOM0.4C39 PO; +TAMS-18 PO
== END ==
LOC: M RAD 09:07
PROVIDERS: ATTEND Nurse Practitioner Family
DX: I71.40 Abdominal aortic aneurysm, without rupture, unspecified (principal)

== ENCOUNTER → 2025-07-22 | Outpatient (CLI) | payer OTHER | LOC: M RAD 12:11 | PROVIDERS: ATTEND Nurse Practitioner Family | DX: N18.9 Chronic kidney disease, unspecified (principal) ==

== ENCOUNTER 2025-10-04 19:14 | Inpatient (IN) | payer OTHER ==
[~2025-10-04] VITALS: Ht 188 cm; Wt 116.4 kg
[~2025-10-04 19:14] MED LIST changes: +VALA1TAB5 PO
[2025-10-04 19:55] LABS: PLATELET COUNT, AUTOMATED 168 10^3/uL (150-450)
[2025-10-04] MEDS: FUROSEMIDE 20 MG/2 ML VIAL IV ONE (20:09)
[2025-10-04 20:14] LABS: CK-MB VALUE MASS 3.0 NG/ML (<3.6)
[2025-10-04 20:15] LABS: CK-MB VALUE MASS 3.1 NG/ML (<3.6); CPK CREATINE PHOSPHOKINASE 46.0 U/L (46-171); MB/CK RELATIVE INDEX 6.73 (< OR =4)
[2025-10-04 20:16] LABS: ALT/SGPT 22.0 U/L (7.0-40); AST/SGOT 24.0 U/L (<34); CALCIUM LEVEL 9.0 MG/DL (8.3-10.6); CARBON DIOXIDE LEVEL 24.0 MMOL/L (20-31); CHLORIDE LEVEL 95.0 MMOL/L (98-107); CPK CREATINE PHOSPHOKINASE 48.0 U/L (46-171); CREATININE FOR GFR 1.17 MG/DL (0.70-1.30); GLOMERULAR FILTRATION RATE 63.4 (>42); MB/CK RELATIVE INDEX 6.25 (< OR =4); POTASSIUM SERUM 4.7 MMOL/L (3.5-5.1); SODIUM LEVEL 128.0 MMOL/L (136-145)
[2025-10-04 20:30] LABS: ATYPICAL LYMPH 5 % (0-5); EOSINOPHILS 3 % (0-3); LYMPHOCYTES 9 % (16-44); MONOCYTES 10 % (0-5); NEUTROPHILS 72 % (28-66); PLATELET ESTIMATE NORMAL (NORMAL)
[2025-10-04 20:43] LABS: KETONE, URINE AUTO RFX NEGATIVE (NEGATIVE); LEUKOCYTE ESTERASE UR AUTO RFX 3+ (NEGATIVE); MUCUS, URINE RFX SMALL (NEGATIVE); NITRITE, URINE AUTO RFX NEGATIVE (NEGATIVE); RBC, URINE AUTO RFX 73 /HPF (0-3); SQUAM EPITHELIAL CELL UR AURFX 0 /HPF (0-6); TRANSITIONAL EPITHELIAL AU RFX <1 /HPF; WBC, URINE AUTO RFX 117 /HPF (0-3)
[2025-10-04] MEDS: cefTRIAXone SOD 2 GM in DEXTROSE 5% (D5W) ADV/MINI-BAG 50 ML IV ONE (22:09)
[2025-10-05] MEDS ORDERED: GLUCOSE 4 GM CHEW PO PRN (00:25)
[2025-10-05] MEDS ORDERED: DEXTROSE 50% 50 ML SYRINGE IV PRN (00:25)
[2025-10-05] MEDS ORDERED: GLUCAGON INJ 1 MG VIAL SC PRN (00:25)
[2025-10-05 00:49] LABS: INR 0.96
[2025-10-05 01:40] VITALS: BP 165/79; TEMP 97.5; O2SAT 92
[2025-10-05 03:54] VITALS: O2SAT 92
[2025-10-05] MEDS ORDERED: TAMS1CAP17 PO (05:53)
[2025-10-05] MEDS ORDERED: FERR324T2 PO (05:53)
[2025-10-05] MEDS ORDERED: QUET1TAB17 PO (05:53)
[2025-10-05] MEDS ORDERED: MESA50SU PR (05:53)
[2025-10-05] MEDS ORDERED: SYNJ1TAB15 PO (05:53)
[2025-10-05] MEDS ORDERED: ASPI81CH33 PO (05:53)
[2025-10-05] MEDS ORDERED: META58.68 PO (05:53)
[2025-10-05] MEDS ORDERED: MULTCAP3 PO (05:53)
[2025-10-05] MEDS ORDERED: HOME MED LIST COMPLETE! XX SCH (05:55)
[2025-10-05] MEDS ORDERED: TOBR5DRO6 OU (06:01)
[2025-10-05 06:18] VITALS: BP 157/71; TEMP 97.9; O2SAT 91
[2025-10-05] MEDS: NYSTATIN 100,000 UNITS/GM TOPICAL PWD 15 GM TOP SCH (06:30)
[2025-10-05 06:41] LABS: BASO # 0.0 10^3/uL (0.0-0.2); BASO % 0.2 % (0.0-1.0); EOS # 0.1 10^3/uL (0.0-0.5); EOS % 2.3 % (0.0-3.0); LYMPH # 1.1 10^3/uL (1.5-5.0); LYMPH % 19.9 % (24.0-44.0); MONO # 0.8 10^3/uL (0.0-0.8); MONO % 15.6 % (2.0-8.0); NEUTROPHILS # 3.3 10^3/uL (1.5-8.5); NEUTROPHILS % 61.1 % (36.0-66.0); PLATELET COUNT, AUTOMATED 185 10^3/uL (150-450)
[2025-10-05 07:17] LABS: CALCIUM LEVEL 9.2 MG/DL (8.3-10.6); CARBON DIOXIDE LEVEL 22.0 MMOL/L (20-31); CHLORIDE LEVEL 92.0 MMOL/L (98-107); CREATININE FOR GFR 1.18 MG/DL (0.70-1.30); GLOMERULAR FILTRATION RATE 62.8 (>42); POTASSIUM SERUM 4.3 MMOL/L (3.5-5.1); SODIUM LEVEL 125.0 MMOL/L (136-145)
[2025-10-05] MEDS: INSULIN LISPRO (NovoLOG) PER UNIT SC SCH ×2 (08:59→21:00)
[2025-10-05] MEDS: HEPARIN SOD 5000 UNITS/ML 1 ML VIAL/SYRINGE SC SCH (09:00)
[2025-10-05] MEDS: NS (Normal Saline) 0.9% 1,000 ML IV SCH (09:00)
[2025-10-05] MEDS: DOXYCYCLINE HYCLATE 100 MG TABLET PO SCH (09:00)
[2025-10-05] MEDS ORDERED: ALBUTEROL 90 MCG/ACT 8 GM HFA INHALER INH PRN (10:20)
[2025-10-05] MEDS: CETIRIZINE 10 MG TAB PO SCH (10:53)
[2025-10-05] MEDS: ASPIRIN 81 MG CHEWABLE TABLET PO SCH (10:53)
[2025-10-05] MEDS: ATORVASTATIN 20 MG TAB PO SCH (10:53)
[2025-10-05] MEDS: busPIRone 5 MG TAB PO SCH (10:53)
[2025-10-05] MEDS: PARoxetine 20MG TABLET PO SCH (10:54)
[2025-10-05] MEDS: MESALAMINE 1,000 MG SUPP PR SCH (10:55)
[2025-10-05] MEDS: OMEPRAZOLE 20MG CAP PO SCH (10:55)
[2025-10-05] MEDS: FERROUS SULFATE 325 MG TAB PO SCH (10:55)
[2025-10-05] MEDS: FENOFIBRATE 145 MG TABLET PO SCH (11:46)
[2025-10-05 12:00] VITALS: BP 131/64; TEMP 98.3; O2SAT 95
[2025-10-05 15:35] LABS: SODIUM,RANDOM URINE 111 MMOL/L
[2025-10-05 21:29] VITALS: BP 154/67; TEMP 99.4; O2SAT 93
[2025-10-05] MEDS: DOCUSATE SODIUM 100 MG CAPSULE PO SCH (21:30)
[2025-10-05] MEDS: TAMSULOSIN 0.4 MG CAP PO SCH (21:30)
[2025-10-05 21:31] VITALS: TEMP 98
[2025-10-05] MEDS: SENNA 8.6 MG TAB PO SCH (21:31)
[2025-10-05] MEDS: RAMELTEON 8 MG TAB PO SCH (21:31)
[2025-10-05] MEDS: cefTRIAXone SOD 2 GM in DEXTROSE 5% (D5W) ADV/MINI-BAG 50 ML IV SCH (21:34)
[2025-10-05] MEDS: LATANOPROST 0.005% OPHTH SOLN 2.5 ML OU SCH (21:34)
[2025-10-05] MEDS: ACETAMINOPHEN 325 MG TAB PO PRN (21:35)
[2025-10-06 01:36] VITALS: BP 124/60; TEMP 97; O2SAT 91; O2SAT 93
[2025-10-06] MEDS: FUROSEMIDE 40 MG/4 ML VIAL IV STA (02:27)
[2025-10-06 03:57] VITALS: BP 129/61; TEMP 96.8; O2SAT 97
[2025-10-06 04:00] VITALS: TEMP 97.3
[2025-10-06 06:05] VITALS: O2SAT 91
[2025-10-06 07:52] LABS: BASO # 0.0 10^3/uL (0.0-0.2); BASO % 0.7 % (0.0-1.0); EOS # 0.2 10^3/uL (0.0-0.5); EOS % 3.0 % (0.0-3.0); LYMPH # 1.0 10^3/uL (1.5-5.0); LYMPH % 18.3 % (24.0-44.0); MONO # 0.7 10^3/uL (0.0-0.8); MONO % 13.1 % (2.0-8.0); NEUTROPHILS # 3.5 10^3/uL (1.5-8.5); NEUTROPHILS % 64.3 % (36.0-66.0); PLATELET COUNT, AUTOMATED 183 10^3/uL (150-450)
[2025-10-06 08:23] LABS: CALCIUM LEVEL 8.6 MG/DL (8.3-10.6); CARBON DIOXIDE LEVEL 22.0 MMOL/L (20-31); CHLORIDE LEVEL 93.0 MMOL/L (98-107); CREATININE FOR GFR 1.3 MG/DL (0.70-1.30); GLOMERULAR FILTRATION RATE 55.9 (>42); POTASSIUM SERUM 3.9 MMOL/L (3.5-5.1); SODIUM LEVEL 126.0 MMOL/L (136-145)
[2025-10-06 12:19] VITALS: BP 106/58; TEMP 98.5; O2SAT 65; O2SAT 95
[2025-10-06] MEDS: NS (Normal Saline) 0.9% 1,000 ML IV SCH (14:25)
[2025-10-06 19:56] VITALS: BP 123/58; TEMP 98.6; O2SAT 94
[2025-10-06] MEDS: traZODone 25MG PER 1/2 TABLET PO SCH (21:21)
[2025-10-07 05:04] VITALS: BP 135/60; TEMP 98; O2SAT 95
[2025-10-07 07:26] LABS: BASO # 0.0 10^3/uL (0.0-0.2); BASO % 0.4 % (0.0-1.0); EOS # 0.3 10^3/uL (0.0-0.5); EOS % 4.9 % (0.0-3.0); LYMPH # 1.1 10^3/uL (1.5-5.0); LYMPH % 21.1 % (24.0-44.0); MONO # 0.6 10^3/uL (0.0-0.8); MONO % 11.4 % (2.0-8.0); NEUTROPHILS # 3.1 10^3/uL (1.5-8.5); NEUTROPHILS % 61.0 % (36.0-66.0); PLATELET COUNT, AUTOMATED 173 10^3/uL (150-450)
[2025-10-07 07:47] LABS: CALCIUM LEVEL 8.5 MG/DL (8.3-10.6); CARBON DIOXIDE LEVEL 22.0 MMOL/L (20-31); CHLORIDE LEVEL 97.0 MMOL/L (98-107); CREATININE FOR GFR 1.15 MG/DL (0.70-1.30); GLOMERULAR FILTRATION RATE 64.7 (>42); POTASSIUM SERUM 4.1 MMOL/L (3.5-5.1); SODIUM LEVEL 129.0 MMOL/L (136-145)
[2025-10-07 08:58] LABS: OSMOLALITY SERUM 276.0 MOSM/KG (280-301)
[2025-10-07 12:00] VITALS: BP 136/64; TEMP 98.4; O2SAT 95
[2025-10-07 20:22] VITALS: BP 118/57; TEMP 98.3; O2SAT 94
[2025-10-08 03:27] VITALS: BP 131/58; TEMP 98; O2SAT 92
[2025-10-08 07:10] LABS: BASO # 0.0 10^3/uL (0.0-0.2); BASO % 0.5 % (0.0-1.0); EOS # 0.3 10^3/uL (0.0-0.5); EOS % 4.7 % (0.0-3.0); LYMPH # 1.2 10^3/uL (1.5-5.0); LYMPH % 19.8 % (24.0-44.0); MONO # 0.6 10^3/uL (0.0-0.8); MONO % 9.8 % (2.0-8.0); NEUTROPHILS # 3.7 10^3/uL (1.5-8.5); NEUTROPHILS % 64.3 % (36.0-66.0); PLATELET COUNT, AUTOMATED 198 10^3/uL (150-450)
[2025-10-08 07:37] LABS: CALCIUM LEVEL 9.1 MG/DL (8.3-10.6); CARBON DIOXIDE LEVEL 23.0 MMOL/L (20-31); CHLORIDE LEVEL 102.0 MMOL/L (98-107); CREATININE FOR GFR 1.08 MG/DL (0.70-1.30); GLOMERULAR FILTRATION RATE 69.8 (>42); POTASSIUM SERUM 4.3 MMOL/L (3.5-5.1); SODIUM LEVEL 133.0 MMOL/L (136-145)
[2025-10-08 13:31] VITALS: BP 136/65; TEMP 98.2; O2SAT 96
[2025-10-08 19:46] VITALS: BP 122/60; TEMP 98.3; O2SAT 94
[2025-10-09 03:01] VITALS: BP 155/67; TEMP 97.6; O2SAT 93
[2025-10-09 07:44] LABS: BASO # 0.0 10^3/uL (0.0-0.2); BASO % 0.6 % (0.0-1.0); EOS # 0.2 10^3/uL (0.0-0.5); EOS % 3.8 % (0.0-3.0); LYMPH # 0.8 10^3/uL (1.5-5.0); LYMPH % 17.3 % (24.0-44.0); MONO # 0.4 10^3/uL (0.0-0.8); MONO % 9.2 % (2.0-8.0); NEUTROPHILS # 3.3 10^3/uL (1.5-8.5); NEUTROPHILS % 68.1 % (36.0-66.0); PLATELET COUNT, AUTOMATED 193 10^3/uL (150-450)
[2025-10-09 07:54] LABS: CALCIUM LEVEL 8.7 MG/DL (8.3-10.6); CARBON DIOXIDE LEVEL 25.0 MMOL/L (20-31); CHLORIDE LEVEL 104.0 MMOL/L (98-107); CREATININE FOR GFR 1.01 MG/DL (0.70-1.30); GLOMERULAR FILTRATION RATE 75.7 (>42); POTASSIUM SERUM 4.3 MMOL/L (3.5-5.1); SODIUM LEVEL 137.0 MMOL/L (136-145)
[2025-10-09 12:11] VITALS: BP 131/62; TEMP 98; O2SAT 95
[2025-10-09] MEDS: METAMUCIL PACKET PO PRN (12:20)
[2025-10-09] MEDS: FOSFOMYCIN TROMETHAMINE 3 GM POWDER PACKET PO ONE (16:19)
[2025-10-09 20:39] VITALS: BP 162/69; TEMP 98; O2SAT 95
[2025-10-10 03:51] VITALS: BP 148/68; TEMP 97.9; O2SAT 92
[2025-10-10 06:40] LABS: BASO # 0.0 10^3/uL (0.0-0.2); BASO % 0.6 % (0.0-1.0); EOS # 0.2 10^3/uL (0.0-0.5); EOS % 4.0 % (0.0-3.0); LYMPH # 0.9 10^3/uL (1.5-5.0); LYMPH % 18.5 % (24.0-44.0); MONO # 0.4 10^3/uL (0.0-0.8); MONO % 8.5 % (2.0-8.0); NEUTROPHILS # 3.4 10^3/uL (1.5-8.5); NEUTROPHILS % 66.8 % (36.0-66.0); PLATELET COUNT, AUTOMATED 214 10^3/uL (150-450)
[2025-10-10 07:02] LABS: CALCIUM LEVEL 8.9 MG/DL (8.3-10.6); CARBON DIOXIDE LEVEL 26.0 MMOL/L (20-31); CHLORIDE LEVEL 103.0 MMOL/L (98-107); CREATININE FOR GFR 1.02 MG/DL (0.70-1.30); GLOMERULAR FILTRATION RATE 74.8 (>42); POTASSIUM SERUM 4.4 MMOL/L (3.5-5.1); SODIUM LEVEL 136.0 MMOL/L (136-145)
[2025-10-10] MEDS ORDERED: VARIBAR PUDDING 40% w/v 230ML TUBE As Ordered ONE (11:27)
[2025-10-10] MEDS ORDERED: E-Z-PAQUE 96% w/w SUSP 176 GM BTL As Ordered ONE (11:27)
[2025-10-10] MEDS ORDERED: VARIBAR NECTAR 40% w/v 240ML SUSP BTL As Ordered ONE (11:28)
[2025-10-10 12:32] VITALS: BP 161/67; TEMP 98.2; O2SAT 93
[2025-10-10 20:21] VITALS: BP 156/70; TEMP 98.1; O2SAT 95
[2025-10-11 03:15] VITALS: BP 158/70; TEMP 97.3; O2SAT 94
[2025-10-11 07:46] LABS: CALCIUM LEVEL 9.5 MG/DL (8.3-10.6); CARBON DIOXIDE LEVEL 25.0 MMOL/L (20-31); CHLORIDE LEVEL 100.0 MMOL/L (98-107); CREATININE FOR GFR 1.04 MG/DL (0.70-1.30); GLOMERULAR FILTRATION RATE 73.0 (>42); POTASSIUM SERUM 4.4 MMOL/L (3.5-5.1); SODIUM LEVEL 135.0 MMOL/L (136-145)
[2025-10-11 08:34] VITALS: BP 172/75
[2025-10-11] MEDS: amLODIPine 10 MG TAB PO SCH (12:56)
[2025-10-12 03:11] VITALS: BP 139/65; TEMP 97.7; O2SAT 92
[2025-10-12 09:04] VITALS: BP 144/76
[2025-10-13 05:37] VITALS: BP 146/65; TEMP 97.8; O2SAT 92
[2025-10-14 03:15] VITALS: BP 133/63; TEMP 97.7; O2SAT 93
[2025-10-14 08:33] VITALS: BP 121/66
[2025-10-14] MEDS ORDERED: AMLO1TAB25 PO (12:00)
== END 2025-10-14 12:41 | DRG 177 ==
LOC: EDBD 19:14 → M ED 19:14 → M ED INP 23:51 → M MSPAV 10-05 01:31
PROVIDERS: ADMIT Internal Medicine; ATTEND Internal Medicine
PROC: B246ZZZ Ultrasonography of Right and Left Heart (ICD-10-PCS; principal; 2025-10-06)
DX: J15.5 Pneumonia due to Escherichia coli (principal); G93.41 Metabolic encephalopathy; N39.0 Urinary tract infection, site not specified; E87.1 Hypo-osmolality and hyponatremia; J44.0 Chronic obstructive pulmonary disease with (acute) lower respiratory infection; J81.1 Chronic pulmonary edema; I25.2 Old myocardial infarction; N18.9 Chronic kidney disease, unspecified; R13.12 Dysphagia, oropharyngeal phase; J15.1 Pneumonia due to Pseudomonas; K21.9 Gastro-esophageal reflux disease without esophagitis; I25.10 Atherosclerotic heart disease of native coronary artery without angina pectoris; Z95.5 Presence of coronary angioplasty implant and graft; E78.5 Hyperlipidemia, unspecified; E11.22 Type 2 diabetes mellitus with diabetic chronic kidney disease; Z85.46 Personal history of malignant neoplasm of prostate; Z92.3 Personal history of irradiation; G47.33 Obstructive sleep apnea (adult) (pediatric); R26.89 Other abnormalities of gait and mobility; F17.210 Nicotine dependence, cigarettes, uncomplicated; B02.9 Zoster without complications; I12.9 Hypertensive chronic kidney disease with stage 1 through stage 4 chronic kidney disease, or unspecified chronic kidney disease; K59.09 Other constipation; F39 Unspecified mood [affective] disorder; Z79.82 Long term (current) use of aspirin; Z79.899 Other long term (current) drug therapy; Z88.0 Allergy status to penicillin; Z88.1 Allergy status to other antibiotic agents; Z88.8 Allergy status to other drugs, medicaments and biological substances

== ENCOUNTER → 2025-10-17 | Outpatient (REF) | payer OTHER ==
[~2025-10-17] MED LIST changes: +AMLO1TAB25 PO; +ASPI81CH33 PO; +FERR324T2 PO; +MESA50SU PR; +META58.68 PO; +MULTCAP3 PO; +QUET1TAB17 PO; +SYNJ1TAB15 PO; +TAMS1CAP17 PO; +TOBR5DRO6 OU
[2025-10-17 12:16] LABS: PLATELET COUNT, AUTOMATED 208 10^3/uL (150-450)
[2025-10-17 12:38] LABS: CALCIUM LEVEL 9.6 MG/DL (8.3-10.6); CARBON DIOXIDE LEVEL 24.0 MMOL/L (20-31); CHLORIDE LEVEL 102.0 MMOL/L (98-107); CREATININE FOR GFR 1.29 MG/DL (0.70-1.30); GLOMERULAR FILTRATION RATE 56.4 (>42); POTASSIUM SERUM 4.1 MMOL/L (3.5-5.1); SODIUM LEVEL 136.0 MMOL/L (136-145)
== END ==
LOC: SKLAB2 10:56
PROVIDERS: ATTEND Family Medicine
DX: R53.83 Other fatigue (principal); R19.7 Diarrhea, unspecified